=== PATIENT | male | born 1960 | race Caucasian/White ===

== ENCOUNTER → 2020-02-09 08:12 | Outpatient (CLI) | payer BC, SELFPAY ==
[2020-02-09 08:09] VITALS: BMI 27.2
--- NOTE | 2020-02-09 08:14 | RAD_ITS ---
STUDY: X-RAY - LEFT FOOT CLINICAL: Male, 59 years old. INJURED BIG TOE TECHNIQUE: 3 view(s) of the foot. COMPARISON: None. FINDINGS: There is an enthesophyte involving the posterior superior calcaneus at the site of insertion of the Achilles tendon. Normal visualized subtalar, talonavicular, calcaneocuboid, tarsal and tarsometatarsal articulations. Normal metatarsi. There is degenerative arthrosis of the metatarsophalangeal joint of the hallux . Normal tibial and fibular sesamoid bones. Normal interphalangeal joint of the great toe. Normal phalanges of the great toe. Normal second through fifth metatarsophalangeal joints. Normal interphalangeal joints and phalanges of the lesser toes. Soft tissue swelling. RAD/Foot min 3 Views IMPRESSION: Degenerative changes at the first metatarsophalangeal joint. Soft tissue swelling. Electronically Signed: Guille Cummins, at 8:42 EDT , Service support ,
--- NOTE | 2020-03-22 10:13 | ED.RN ---
Pt called advocate inquiring about follow-up care. States toe is still swollen and discolored. Advocate called [facility] and awaiting return call.
== END ==
PROVIDERS: Referring Provider Physician Assistant; Visit Provider Physician Assistant
DX: S99.922A Unspecified injury of left foot, initial encounter (principal)
CPT/HCPCS: 73630

== ENCOUNTER 2020-11-20 19:22 | Inpatient (IN) | payer BC, SELFPAY ==
[2020-02-09 08:09] VITALS: BMI 27.2
[2020-11-20 19:24] VITALS: BP 124/73; PULSE 100; RESP 16; TEMP 35.7; O2SAT 97; BMI 27.6
[2020-11-20 20:21] LABS: Absolute Lymphocyte Count 2.15 X10^3/uL (0.83-4.51); Absolute Neutrophil Count 4.6 X10^3/uL (2.0-7.7); Basophil# 0.05 X10^3/uL; Basophil% 0.7 % (0-1); Eosinophil# 0.09 X10^3/uL; Eosinophils% 1.2 % (0-5); Hematocrit 43.6 % (40-54); Lymphocyte # 2.15 X10^3/ul (4.0); Lymphocyte % 29.6 % (19-41); Mean Corp Hgb Conc 34.4 g/dL (32-36); Mean Corpuscular Hgb 30.7 pg (27.0-32.0); Mean Corpuscular Volume 89.2 fL (80-94); Mean Platelet Vol. 8.4 fl (6.2-12.0); Monocyte# 0.37 X10^3/uL; Monocyte% 5.1 % (0-10); NRBC Flagged by Analyzer 0 % (0-5); Neutrophil % 63.3 % (47-70); Platelet Count 324 K/mm3 (150-450); RBC Distribution Width CV 12.2 % (11.6-14.6); RBC Distribution Width SD 40.1 fl (35.1-43.9); Red Blood Count 4.89 M/mm3 (4.6-6.2); White Blood Count 7.3 K/mm3 (4.4-11.0)
--- NOTE | 2020-11-20 20:21 | ED.VISSUMM ---
- ER Visit Summary Date of Service: 11/20/20 Chief Complaint: Detox from alcohol History of Present Illness: The patient is a 60 M who presents requesting detox from alcohol. Patient states he drinks approximately 8-10 beers per day. Patient states his last drink was approximately 2 hours prior to arrival. Patient states his last detox was approximately 2 years ago. Patient states he was sober for approximately 6 months after that. Patient states he started drinking again and has been drinking for the past year and a half. Patient denies any seizures. Patient denies any tremors. Patient denies any hallucinations. Patient does admit to suicidal thoughts. Patient states he has thought of overdosing on sleeping pills. Physical Examination: Vital signs are stable. Patient is afebrile. Patient is in no acute distress. Oral mucosa is pink and moist. Neck is supple. Trachea is midline. There is no JVD noted. Heart was regular rate and rhythm. Lungs are clear and equal bilaterally. Abdomen is soft. Bowel sounds are normal. There is no tenderness. There is no rebound or guarding noted. Skin is warm dry. Cranial nerves II through XII are intact. There are no focal motor or sensory deficits noted. Extremities are intact. There is no calf tenderness or edema. Patient does have a depressed mood and a flat affect. Patient admits to suicidal ideations Test Results: CBC and basic metabolic profile were obtained and were within normal limits. Urine tox screen was negative. Serum alcohol level was 81. Emergency Department Course and Treatment: Because the patient voiced suicidal ideations, social worker palliative care went in to talk with the patient. Patient told the social worker palliative care that his only suicidal ideations were because of his drinking. Patient does not have any suicidal intent. Patient states he is just tired of drinking and if he cannot get any help with his alcoholism, then he would consider suicidal thoughts. Case was discussed with the hospitalist. Disposition: Admit to hospital Impression: 1. Alcohol withdrawal This note was generated with [employer] dictation software. It may contain incorrect words, spelling, and punctuation that were not noted in review of the chart prior to signing ED Disposition - Plan for ED Patient: Disposition: Acute Care Hospital [facility] Diagnosis: Alcohol withdrawal
--- NOTE | 2020-11-20 20:25 | ED.RN ---
PATIENT HAS PROPERTY ENVELOPE LOCKED UP AT THIS TIME # [id number]
[2020-11-20 20:44] LABS: Anion Gap 7 (5-15); BUN 10 mg/dL (7-18); BUN/Creat Ratio 11.8 RATIO (10-20); Calcium,Total 8.6 mg/dL (8.5-10.1); Chloride 108 mmol/L (98-107); Creatinine, Serum 0.84 mg/dL (0.70-1.30); EST Glomerular Filtration Rate 99 mL/min (>60); Est Glom Filt Rate - Afr Amer 120 mL/min (>60); Estimated Creatinine Clearance 98.97 ml/min; Glucose 81 mg/dL (74-106); Potassium 3.7 mmol/L (3.5-5.1); Sodium Level 140 mmol/L (136-145)
[2020-11-20 21:00] VITALS: RESP 15
[2020-11-20 21:01] LABS: Amphetamine Urine VISTA NEGATIVE (<1000 ng/mL); Barbiturate Urine VISTA NEGATIVE (< 200 ng/mL); Benzodiazepine Urine VISTA NEGATIVE (< 200 ng/mL); Cocaine Urine VISTA NEGATIVE (< 300 ng/mL); Ecstacy Urine VISTA NEGATIVE (< 500 ng/mL); Methadone Urine VISTA NEGATIVE (< 300 ng/mL); PCP Urine VISTA NEGATIVE (< 25 ng/mL); THC Urine VISTA NEGATIVE (< 50 ng/mL); Vista UDS pH Range 5
--- NOTE | 2020-11-20 22:16 | CM.ED ---
SOCIAL WORK ASSESSMENT Informant: Dr. Delgado Reason for Consult: Substance Abuse/Suicidal ideation Chief Compliant: Patient wanting detox from alcohol. Patient voiced suicidal ideation due to depression from drinking. Marital/Social History: Living Situation: Patient reports is living in [place] with a friend Support/Resources: Friend Education/Employment History: 2 years of college, patient employed at [employer] Treatment/History: Patient reports depression due to drinking. Patient reports has attempted suicide in the past about 5 years ago with sleeping pills. Patient currently denies suicidal ideation and intent. Triggers/Stressors: Patient reports has been in contact with multiple treatment facilities and got nowhere. Patient reports was feeling hopeless as he was not able to get help. Abuse Issues: Patient denies any history of emotional, physical or sexual abuse. Substance Abuse History: Alcohol. Patient states has been drinking most of my life. Patient reports about 8 years ago things became real bad and went to rehab. Patient states since then has had periods of sobriety and treatment. Patient reports drinking became worse over the holidays. Patient states today drank about 8-10 beers, but could have been more. Patient reporting I just want help. Risk to Self/Others: Suicidal- Patient denies any current suicidal ideation, plan or intent. Patient states to have attempted in the past. Patient states this all stems from my drinking. I just want help to stop. Patient counseled on lethal means. Recommending discontinuation of sitter protocol. Homicidal- Patient denies any homicidal ideation. Mental Status Exam: Orientation: A&Ox3 Memory: Good Appearance/General Behavior: clean/appropriate, calm Mood/Affect: depressed Communication Pattern: responds to questions, maintains eye contact, forward thinking, patient with good insight into disease Judgment: good Assessment: Met with patient in room. Sitter protocol in place at this time. Introduced role and reason for referral. Patient's alcohol level under 100 and cleared for assessment by this worker. Patient A&Ox3. Patient discussed history of alcohol abuse and reports it has ruined my life. I just want help. Patient states for last several days has been trying to seek help with treatment. Patient reported feelings of hopelessness because efforts got nowhere. Patient denies any current suicidal ideation. Patient reports thoughts and plan to overdose on sleeping pills and states about 5 years ago had an attempt. Patient stating. I wouldn't do it now, I could never pull the trigger. Patient stating depression all stems from drinking. Patient reports want and need for detox. Education provided on [facility] program here at [facility]. Patient believes would benefit from program. Collaboration with Dr. Delgado and recommendation for sitter to be discontinued. Dr. Delgado in agreement with plan. Plan for admission for alcohol withdrawal management. Plan: Admit to [facility] Treatment Navigator, Marylou updated on plan for patient's admission. Marylou reports Dee Dee from [facility] will be in tomorrow to complete assessment. Johanna Benedict, BUTTON FACING MACHINE OPERATOR, WELT POCKET MACHINE OPERATOR
--- NOTE | 2020-11-20 22:23 | NURSING ---
Sitter no longer needed per Olegario MARTEL.
--- NOTE | 2020-11-20 22:34 | HP.PCM_ITS ---
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 Patient drinks about 6-10 beers a day. Last drank 8 cans of beer at 4 PM on the day of admission. He feels that alcohol is ruining his life and he might not be able to quit. He has a history of medical detox with relapse. He had gone 8 years sober prior. Patient had been trying to get into a rehab facility. He had been communicating with a social welfare research worker for [facility] when he expressed frustration at getting into a detox facility. He had expressed suicidal ideation and a plan. He was referred to the emergency department. In the ED patient denied any suicidal ideation plan. He said he felt depressed and frustrated when he could not get in into a program. At the time of being seen, he denied any tremors or dizziness or nausea or vomiting. His blood alcohol level was 81. Urine tox was negative. Admitting blood work was unremarkable. His vitals show temperature of 96.2F, heart rate 100, blood pressure 124/75, respiratory rate was 16, SPO2 was 97% on room air. Past Medical History Past Medical History (Chronic Problems): Chronic Problems (Last Reviewed 02/09/20 @ 08:12 by Reena Trinidad) Hyperlipidemia (Chronic) Allergies No Known Allergies Allergy (Verified 11/20/20 19:27) Home Medications: Ambulatory Orders Medication Instructions Recorded atorvastatin 40 mg tablet 40 mg PO DAILY 02/09/20 Surgical History: no surgical history Psychiatric History: No pertinent psych hx Lives: Alone Smoking Status: Current every day smoker Tobacco Use: Cigarettes Alcohol: Heavy Drugs: None - *Family History Maternal History Items: Cancer - bone mets Paternal History Items: Unknown Review of Systems Constitutional: Denies: Anorexia, Chills, Fever, Malaise, Weakness, Weight Change, Fatigue Eyes: Denies: Blurred vision, Cataracts, Conjunctivae Inflammation, Pain, Redness, Vision Change HEENT: Denies: Difficulty Hearing, Difficulty Swallowing, Head Aches, Hearing Changes, Sinus Congestion, Sinus Drainage Cardiovascular: Denies: Chest Pain, Claudication, Orthopnea, Palpitations, Paroxysmal Noc. Dyspnea Respiratory: Denies: Cough, Hemoptysis, Shortness of breath at rest, Shortness of breath upon exertion, Sputum production Gastrointestinal: Denies: Abdominal Pain, Hematemesis, Hematochezia, Nausea, Vomiting Genitourinary: Denies: Dysuria, Frequency, Incontinence Musculoskeletal: Denies: Joint Pain, Joint stiffness, Joint swelling, Joint Tenderness Skin: Denies: Rash, Wounds Neurological: Denies: Numbness, Tingling, Focal weakness Psychiatric: Denies: Anxiety, Depression, Homicidal Ideations, Suicidal Ideations Hematologic/ Lymphatic: Denies: Easy Bruising, Easy Bleeding VTE Information - Inpt Only VTE Present on Admission: No VTE Pharm Prophylaxis ordered?: Yes Patient Problems: Active and Suspected Problems (Last Reviewed 02/09/20 @ 08:12 by Reena Trinidad) Alcohol withdrawal (Acute) - Physical Exam Vitals/I&O's: Vital Signs Temp Pulse Resp BP Pulse Ox 96.2 F L 100 15 124/73 H 97 11/20/20 19:24 11/20/20 19:24 11/20/20 21:00 11/20/20 19:24 11/20/20 19:24 Oxygen Delivery Method Room Air Weight: 87.5 kg Body Mass Index (BMI) 27.6 General: Alert, Oriented x3, Cooperative, No apparent distress HEENT: Atraumatic, PERRLA, EOMI, Normocephalic Oral: Moist Mucosa Neck: Supple Lungs: Clear to auscultation, Normal air movement Cardiovascular: Regular rate, Regular Rhythm, Normal S1, Normal S2, No murmurs Abdomen: Bowel Sounds Present, Soft, Non Tender, Non-Distended, No Hepato- splenomegaly Extremities: No edema Skin: No rashes Musculoskeletal: No Tenderness to Palpation of Joints or Extremities Lymphatic: No Cervical, Supraclavicular, or Inguinal Adenopathy Neurological: Cranial nerves II-XII grossly intact Psych/Mental Status: Normal Affect, Appropriate Laboratory Results 11/20/20 20:08: WBC 7.3, RBC 4.89, Hgb 15.0, Hct 43.6, MCV 89.2, MCH 30.7, MCHC 34.4, RDW Std Deviation 40.1, RDW Coeff of Ade 12.2, Plt Count 324, MPV 8.4, Immature Gran % (Auto) 0.100, Neut % (Auto) 63.3, Lymph % (Auto) 29.6, Hooker % (Auto) 5.1, Eos % (Auto) 1.2, Baso % (Auto) 0.7, Absolute Neuts (auto) 4.6, Absolute Lymphs (auto) 2.15, Nucleated RBC % 0 11/20/20 20:08: Sodium 140, Potassium 3.7, Chloride 108 H, Carbon Dioxide 25.0, Anion Gap 7, BUN 10, Creatinine 0.84, Estim Creat Clear Calc 98.97, Est GFR (MDRD) Af Amer 120, Est GFR (MDRD) Non-Af 99, BUN/Creatinine Ratio 11.8, Glucose 81, Calcium 8.6 11/20/20 20:08: Ethyl Alcohol 81.0 11/20/20 20:10: Urine Opiates Screen NEGATIVE, Urine Methadone Screen NEGATIVE, Ur Barbiturates Screen NEGATIVE, Ur Phencyclidine Scrn NEGATIVE, Ur Amphetamines Screen NEGATIVE, U Methamphetamin-MDMA NEGATIVE, U Benzodiazepines Scrn NEGATIVE , Urine Cocaine Screen NEGATIVE, U Cannabinoids Screen NEGATIVE, Ur Drug Screen Comment Assessment/Plan All Active Problems (Last Reviewed 02/09/20 @ 08:12 by Reena Trinidad) Alcohol withdrawal (Acute) Contusion of left great toe without damage to nail (Acute) 1. Chronic alcohol use disorder, being admitted for medical stabilization Patient is currently not in acute alcohol withdrawal, anticipate alcohol withdrawal in a couple of hours Admitting alcohol level was 81 Monitor on phenobarbital withdrawal protocol Social work consulted from the ED 2. Hyperlipidemia, continue on statin 3. DVT prophylaxis?low risk, encourage ambulation Inpatient E&M: [id number] Init Hosp L2
[2020-11-20 22:47] VITALS: BP 138/85; PULSE 75; RESP 16; TEMP 36.8
[2020-11-20 23:52] VITALS: BMI 27.1
[2020-11-21] VITALS (7 sets, daily range): BP systolic 112–144; BP diastolic 59–95; PULSE 76–85; RESP 16–20; TEMP 36.6–37.1; O2SAT 95–98; BMI 27.1
[2020-11-21] MEDS: Phenobarbital 32.4 MG Tablet 64.8 MG PO ×6 (00:15→20:40)
[2020-11-21] MEDS: traZODone 100 MG Tablet PO (00:15)
[2020-11-21 00:27] LABS: AST(SGOT) 15 U/L (15-37); Alanine Aminotransfer ALT/SGPT 24 U/L (16-61); Albumin, Serum 3.7 g/dL (3.2-5.0); Alkaline Phosphatase 61 U/L (45-117); Bilirubin, Direct 0.09 mg/dL (0.00-0.30); Globulin 3.8 g/dL (2.2-4.2); Protein, Total 7.5 g/dL (6.4-8.2)
--- NOTE | 2020-11-21 08:12 | PN_ITS ---
Patient Problems: Active and Suspected Problems (Last Reviewed 02/09/20 @ 08:12 by Reena Trinidad) Alcohol withdrawal (Acute) Subjective: Chief complaint: Follow-up after admission for acute alcohol withdrawal. Patient seen and examined. No acute events overnight. He slept okay last night, has no significant withdrawal symptoms. Reported minimal restlessness but he was able to sleep. No other complaints. His vital signs are stable. - Physical Exam Vitals/I&O's: Vital Signs Temp Pulse Resp BP Pulse Ox 98.4 F 79 17 117/65 98 11/21/20 03:40 11/21/20 03:40 11/21/20 03:40 11/21/20 03:40 11/21/20 03:40 Oxygen Delivery Method Room Air Weight: 188 lb 11.451 oz Body Mass Index (BMI) 27.1 Intake and Output for Last 24 Hours 11/19/20 11/20/20 11/21/20 23:59 23:59 23:59 Intake Total 240 / 240 Balance 240 / 240 General: Alert, Oriented x3, Cooperative, No apparent distress HEENT: Atraumatic, PERRLA, EOMI, Normocephalic Oral: Moist Mucosa, No Gingival or Mucosal Lesions/ Ulcerations Neck: Supple, No JVD, Negative Carotid Bruits, Trachea Midline, Thyroid Normal Size and Texture Lungs: Clear to auscultation, Normal air movement, No rhonchi, No wheeze, No rales Cardiovascular: Regular rate, Regular Rhythm, Normal S1, Normal S2, PMI Normal Abdomen: Bowel Sounds Present, Soft, Non Tender, Non-Distended, No Hepato- splenomegaly Extremities: No clubbing, No cyanosis, No edema Skin: No rashes, No breakdown Lymphatic: No Cervical, Supraclavicular, or Inguinal Adenopathy Neurological: Cranial nerves II-XII grossly intact, Motor Exam 5/5 strength throughout Psych/Mental Status: Normal Affect, Appropriate Laboratory Results 11/20/20 20:08: WBC 7.3, RBC 4.89, Hgb 15.0, Hct 43.6, MCV 89.2, MCH 30.7, MCHC 34.4, RDW Std Deviation 40.1, RDW Coeff of Ade 12.2, Plt Count 324, MPV 8.4, Immature Gran % (Auto) 0.100, Neut % (Auto) 63.3, Lymph % (Auto) 29.6, Maries % (Auto) 5.1, Eos % (Auto) 1.2, Baso % (Auto) 0.7, Absolute Neuts (auto) 4.6, A bsolute Lymphs (auto) 2.15, Nucleated RBC % 0 11/20/20 20:08: Sodium 140, Potassium 3.7, Chloride 108 H, Carbon Dioxide 25.0, Anion Gap 7, BUN 10, Creatinine 0.84, Estim Creat Clear Calc 98.97, Est GFR (MDRD) Af Amer 120, Est GFR (MDRD) Non-Af 99, BUN/Creatinine Ratio 11.8, Glucose 81, Calcium 8.6 11/20/20 20:08: Ethyl Alcohol 81.0 11/20/20 20:08: Total Bilirubin 0.30, Direct Bilirubin 0.09, AST 15, ALT 24, Alkaline Phosphatase 61, Total Protein 7.5, Albumin 3.7, Globulin 3.8 11/20/20 20:10: Urine Opiates Screen NEGATIVE, Urine Methadone Screen NEGATIVE, Ur Barbiturates Screen NEGATIVE, Ur Phencyclidine Scrn NEGATIVE, Ur Amphetamines Screen NEGATIVE, U Methamphetamin-MDMA NEGATIVE, U Benzodiazepines Scrn NEGATIVE, Urine Cocaine Screen NEGATIVE, U Cannabinoids Screen NEGATIVE, Ur Drug Screen Comment Current Medications Acetaminophen (Acetaminophen 500 Mg Tablet) 500 mg PO Q4H PRN PRN PRN Reason: Temp > 100.4 F Al Hydroxide/Mg Hydroxide (Mag Hydrox/Al Hydrox/Simeth 30 Ml Udc) 30 ml PO Q6H PRN PRN PRN Reason: dyspesia Atorvastatin Calcium (Atorvastatin Calcium 40 Mg Tablet) 40 mg PO QHS [facility] Bisacodyl (Bisacodyl 10 Mg Suppository) 10 mg RECTAL DAILY PRN PRN Reason: Constipation Dicyclomine HCl (Dicyclomine 10 Mg Capsule) 20 mg PO Q6H PRN PRN PRN Reason: abdominal discomfort Folic Acid (Folic Acid 1 Mg Tablet) 1 mg PO DAILY@0800 [facility] Gabapentin (Gabapentin 300 Mg Capsule) 300 mg PO Q8H PRN PRN PRN Reason: moderate to severe anxiety Hydroxyzine Pamoate (Hydroxyzine Lina 25 Mg Capsule) 50 mg PO Q4H PRN PRN PRN Reason: mild anxiety Ibuprofen (Ibuprofen 600 Mg Tablet) 600 mg PO Q8H PRN PRN PRN Reason: Pain Score 1-10 Loperamide HCl (Loperamide 2 Mg Capsule) 2 mg PO Q4H PRN PRN PRN Reason: LOOSE STOOLS Nicotine (Nicotine 21 Mg Patch) 21 mg TD DAILY GRACE Ondansetron HCl (Ondansetron 8 Mg Tablet) 8 mg PO Q8H PRN PRN PRN Reason: NAUSEA Phenobarbital (Phenobarbital 32.4 Mg Tablet) 97.2 mg PO Q4H GRACE; Taper Stop: 11/25/20 07:59 Last Admin: 11/21/20 03:36 Dose: 97.2 mg Documented by: Senna (Senna Tablet) 2 tablet PO QHS PRN PRN PRN Reason: Constipation Thiamine HCl (Thiamine Hydrochloride 100 Mg Tablet) 100 mg PO DAILYCM GRACE Trazodone HCl (Trazodone 100 Mg Tablet) 100 mg PO QHS PRN PRN PRN Reason: INSOMNIA Last Admin: 11/21/20 00:15 Dose: 100 mg Documented by: Medical Necessity - Tobacco Use Smoking Status: Current every day smoker Tobacco Use: Cigarettes Assessment/Plan All Active Problems (Last Reviewed 02/09/20 @ 08:12 by Reena Trinidad) Alcohol withdrawal (Acute) This is a 60 years old male patient presented to the emergency room requesting admission for acute alcohol withdrawal for medical stabilization. #1 acute alcohol withdrawal: He is on phenobarbital taper, folic acid, thiamine, as needed Bentyl, Neurontin, Vistaril, Motrin, Imodium, Zofran and trazodone. Routine blood work and LFT was unremarkable. Urine drug screen was negative. Blood alcohol level was 81. Patient stated that he went for detox program in the past twice, last one was 2 years ago but he relapsed. His last drink was yesterday afternoon. He denied use of recreational drugs. Plan to continue same treatment, consult [facility] program. #2 hyperlipidemia: Stable, continue statins. #3 tobacco abuse: NicoDerm patch. #4 DVT prophylaxis: Low risk patient, no prophylaxis indicated. This note was generated with [employer] dictation software. It may contain incorrect words, spelling, and punctuation that were not noted in checking the note before signing. Inpatient E&M: 72410 Subs Hosp L2
[2020-11-21] MEDS: Thiamine Hydrochloride 100 MG Tablet PO (08:30)
[2020-11-21] MEDS: Folic Acid 1 MG Tablet PO (08:30)
--- NOTE | 2020-11-21 11:15 | ADDICTION ---
This sheet writer met with patient in his room. This sheet writer completed ASAM, MSE, PIETRO, AUDIT and d/c plan during today's visit. All completed documentation faxed to [facility] and placed in chart on ramírez. He plans to follow-up with [facility] for [facility] but requested time to think about his options. This sheet writer will meet with patient tomorrow to review other residential options and to finalize d/c plans if needed.
--- NOTE | 2020-11-21 11:40 | CASEMGMT ---
Social Work Note Per advance scout questions, pt has completed LW, not provided copy to [facility] and unable to bring in copy. Pt hasn't completed HCPOA. Maggie Kline MEDICAL DOSIMETRIST, FISHERIES DIVER
[2020-11-21] MEDS: Atorvastatin Calcium 40 MG Tablet PO (20:41)
[2020-11-22] MEDS: Phenobarbital 32.4 MG Tablet 64.8 MG PO ×7 (00:09→23:50)
[2020-11-22 02:21] VITALS: BP 108/61; PULSE 68; RESP 15; TEMP 36.4; O2SAT 97
--- NOTE | 2020-11-22 02:43 | NURSING ---
Pt is experiencing a little bit of a nosebleed after getting up to the bathroom. She states this is not unusual for her. Cotton pad given. Bleeding stopped fairly quickly.
--- NOTE | 2020-11-22 07:54 | PN_ITS ---
Patient Problems: Active and Suspected Problems (Last Reviewed 02/09/20 @ 08:12 by Reena Trinidad) Alcohol withdrawal (Acute) Subjective: Chief complaint: Follow-up after admission for acute alcohol withdrawal. Patient seen and examined. No acute events overnight. He denies any significant withdrawal symptoms. He was able to sleep last night, no shakiness or tremors. His vital signs are stable. - Physical Exam Vitals/I&O's: Vital Signs Temp Pulse Resp BP Pulse Ox 97.5 F L 68 15 108/61 97 11/22/20 02:21 11/22/20 02:21 11/22/20 02:21 11/22/20 02:21 11/22/20 02:21 Oxygen Delivery Method Room Air Weight: 188 lb 11.451 oz Body Mass Index (BMI) 27.1 Intake and Output for Last 24 Hours 11/20/20 11/21/20 11/22/20 23:59 23:59 23:59 Intake Total 240 / 240 Balance 240 / 240 General: Alert, Oriented x3, Cooperative, No apparent distress HEENT: Atraumatic, PERRLA, EOMI, Normocephalic Oral: Moist Mucosa, No Gingival or Mucosal Lesions/ Ulcerations Neck: Supple, No JVD, Negative Carotid Bruits, Trachea Midline, Thyroid Normal Size and Texture Lungs: Clear to auscultation, Normal air movement, No rhonchi, No wheeze, No rales Cardiovascular: Regular rate, Regular Rhythm, Normal S1, Normal S2, PMI Normal Abdomen: Bowel Sounds Present, Soft, Non Tender, Non-Distended, No Hepato-splenomegaly Extremities: No clubbing, No cyanosis, No edema Skin: No rashes, No breakdown Lymphatic: No Cervical, Supraclavicular, or Inguinal Adenopathy Neurological: Cranial nerves II-XII grossly intact, Neuro grossly intact Psych/Mental Status: Normal Affect, Appropriate, Alert and oriented to time, place, person, mood and affect Current Medications Acetaminophen (Acetaminophen 500 Mg Tablet) 500 mg PO Q4H PRN PRN PRN Reason: Temp > 100.4 F Al Hydroxide/Mg Hydroxide (Mag Hydrox/Al Hydrox/Simeth 30 Ml Udc) 30 ml PO Q6H PRN PRN PRN Reason: dyspesia Atorvastatin Calcium (Atorvastatin Calcium 40 Mg Tablet) 40 mg PO QHS [facility] Last Admin: 11/21/20 20:41 Dose: 40 mg Documented by: Bisacodyl (Bisacodyl 10 Mg Suppository) 10 mg RECTAL DAILY PRN PRN Reason: Constipation Dicyclomine HCl (Dicyclomine 10 Mg Capsule) 20 mg PO Q6H PRN PRN PRN Reason: abdominal discomfort Folic Acid (Folic Acid 1 Mg Tablet) 1 mg PO DAILY@0800 [facility] Last Admin: 11/21/20 08:30 Dose: 1 mg Documented by: Gabapentin (Gabapentin 300 Mg Capsule) 300 mg PO Q8H PRN PRN PRN Reason: moderate to severe anxiety Hydroxyzine Pamoate (Hydroxyzine Lina 25 Mg Capsule) 50 mg PO Q4H PRN PRN PRN Reason: mild anxiety Ibuprofen (Ibuprofen 600 Mg Tablet) 600 mg PO Q8H PRN PRN PRN Reason: Pain Score 1-10 Loperamide HCl (Loperamide 2 Mg Capsule) 2 mg PO Q4H PRN PRN PRN Reason: LOOSE STOOLS Nicotine (Nicotine 21 Mg Patch) 21 mg TD DAILY [facility] Last Admin: 11/21/20 08:30 Dose: Not Given Documented by: Ondansetron HCl (Ondansetron 8 Mg Tablet) 8 mg PO Q8H PRN PRN PRN Reason: NAUSEA Phenobarbital (Phenobarbital 32.4 Mg Tablet) 97.2 mg PO Q4H [facility]; Taper Stop: 11/25/20 07:59 Last Admin: 11/22/20 04:08 Dose: 97.2 mg Documented by: Senna (Senna Tablet) 2 tablet PO QHS PRN PRN PRN Reason: Constipation Thiamine HCl ([facility] 100 Mg [facility]) [facility] Admin: 11/21/20 08:30 Dose: 100 mg Documented by: Trazodone HCl (Trazodone 100 Mg Tablet) 100 mg PO QHS PRN PRN PRN Reason: INSOMNIA Last Admin: 11/21/20 00:15 Dose: 100 mg Documented by: Medical Necessity - Tobacco Use Smoking Status: Current every day smoker Tobacco Use: Cigarettes Assessment/Plan All Active Problems (Last Reviewed 02/09/20 @ 08:12 by Reena Trinidad) Alcohol withdrawal (Acute) This is a 60 years old male patient presented to the emergency room requesting admission for acute alcohol withdrawal for medical stabilization. #1 acute alcohol withdrawal: He denied any significant withdrawal symptoms. His vital signs are stable, no tachycardia. Remained on phenobarbital taper, folic acid, thiamine, as needed Bentyl, Neurontin, Vistaril, Motrin, Imodium, Zofran and trazodone. Routine blood work and LFT was unremarkable. Urine drug screen was negative. Blood alcohol level was 81. Patient stated that he went for detox program in the past twice, last one was 2 years ago but he relapsed. His last drink was yesterday afternoon. He denied use of recreational drugs. Plan to continue same treatment, possible DC home tomorrow. #2 hyperlipidemia: Stable, continue statins. #3 tobacco abuse: NicoDerm patch. #4 DVT prophylaxis: Low risk patient, no prophylaxis indicated. This note was generated with [employer] dictation software. It may contain incorrect words, spelling, and punctuation that were not noted in checking the note before signing. Inpatient E&M: 42072 Subs Hosp L2
[2020-11-22 09:05] VITALS: BP 127/85; PULSE 80; RESP 16; TEMP 36.3; O2SAT 98
[2020-11-22] MEDS: Folic Acid 1 MG Tablet PO (09:09)
[2020-11-22] MEDS: Thiamine Hydrochloride 100 MG Tablet PO (09:09)
--- NOTE | 2020-11-22 10:10 | ADDICTION ---
This resume writer met with patient in his room to finalize d/c plan. Pt was agitated and vocalized a desire to potentially leave AMA as he is not able to access his cell phone. He requested a copy of his treatment agreement and was provided this document by charge nurse for his review. Pt not willing to commit to any specific treatment agency but requested to speak with his rehabilitation caseworker, Mabel Lemus with [facility]. Her contact number is [phone]. This resume writer assisted pt in making this call, rehabilitation caseworker did not answer. This resume writer obtained PIETRO and left message for rehabilitation caseworker requesting a return call on pt behalf. This resume writer will attempt to meet with pt tomorrow to finalize d/c plan after speaking with his rehabilitation caseworker.
--- NOTE | 2020-11-22 14:56 | CASEMGMT ---
Social Work Note DELONTE received call from Sheron at [facility]. Sheron states pt is able to admit directly to [facility] tomorrow. Sheron states she will arrange transportation. DELONTE updated RN. Maggie Kline [employer], [employer]
[2020-11-22 16:05] VITALS: BP 158/79; PULSE 68; RESP 18; TEMP 36.8; O2SAT 100
[2020-11-22 19:54] VITALS: BP 109/82; PULSE 81; RESP 16; TEMP 36.4; O2SAT 99
[2020-11-22 19:59] VITALS: BP 109/82; PULSE 81; RESP 16; TEMP 36.4; O2SAT 99
[2020-11-22] MEDS: Atorvastatin Calcium 40 MG Tablet PO (20:08)
[2020-11-22 20:14] VITALS: PULSE 70
[2020-11-23 02:12] VITALS: BP 118/76; PULSE 70; RESP 16; TEMP 36.4; O2SAT 98
[2020-11-23] MEDS: Phenobarbital 32.4 MG Tablet 64.8 MG PO ×2 (04:12→09:19)
--- NOTE | 2020-11-23 08:16 | PCM.DC ---
- Discharge Diagnoses Current Active Problems: Current Active and Chronic Problems (Last Reviewed 02/09/20 @ 08:12 by Reena Trinidad) Alcohol withdrawal (Acute) Hyperlipidemia (Chronic) You will use the following diet at home:: Regular Discharge Activity: Return to Normal Activity Weight Bearing Status: Full weight bearing Call your doctor if you observe: Fever of 101 or Higher, Shortness of breath, Dizziness, Fainting spells, Chest pain, Increased palpitations (irregular heartbeat), Uncontrolled pain Instructions: Recovering from Addiction: Continuing with Counseling, Recovering from Addiction: Coping with Relapse Allergies/Adverse Reactions: Allergies No Known Allergies Allergy (Verified 11/20/20 19:27) Medications to take at Discharge atorvastatin 40 mg tablet 40 mg PO DAILY 02/09/20 Folic Acid 1 mg PO DAILY@0800 #30 tab 11/23/20 Thiamine Hydrochloride [Vitamin B1] 100 mg PO DAILYCM #30 tab 11/23/20 The following prescriptions were given: Folic Acid 1 mg PO DAILY@0800 #30 tab Transmission Status: Pending to [address] Thiamine Hydrochloride [Vitamin B1] 100 mg PO DAILYCM #30 tab Transmission Status: Pending to [address] Primary Care Physician: Care Physician,No Primary [Primary Care Provider] - Please follow up with your Primary Care Physician in: 2-3 weeks. Test Results: Test results from this visit will be discussed in further detail at your follow-up appointment, if applicable.
[2020-11-23] MEDS: Folic Acid 1 MG Tablet PO (09:20)
[2020-11-23] MEDS: Thiamine Hydrochloride 100 MG Tablet PO (09:20)
[2020-11-23 09:24] VITALS: BP 102/76; PULSE 82; RESP 16; TEMP 36.6; O2SAT 97
--- NOTE | 2020-11-23 10:30 | NURSING ---
Returned patient's belongings envelope from the hospital safe. Patient confirmed all money was accounted for and signed form. This nurse and Carito Noble RN witnessed returning of belongings envelope. Patient otherwise ready for discharge. Primary RN Lindsey confirmed that patient is ok for discharge. Patient declined need for wheel chair and elected to walk out of the building. Patient escorted to elevator. Patient denies further needs
--- NOTE | 2020-11-23 11:31 | PCM.DC.SUM ---
Discharge Date and Diagnosis - Problem List Patient Problems: Active and Suspected Problems (Last Reviewed 02/09/20 @ 08:12 by Reena Trinidad) Alcohol withdrawal (Acute) Date of Admission: 11/20/20 Date of Discharge: 11/23/20 - Primary Discharge Diagnosis Acute Problems: Active Problems (Last Reviewed 02/09/20 @ 08:12 by Reena Trinidad) Acute alcohol withdrawal admitted for medical stabilization. - Secondary Discharge Diagnosis Chronic Problems: Chronic Problems (Last Reviewed 02/09/20 @ 08:12 by Reena Trinidad) Alcohol abuse (Chronic) Hyperlipidemia (Chronic) Hospital Course and Treatment Operations: None Procedures: None Summary of Care Provided: Patient seen and examined on the day of discharge and appeared to be stable to be discharged home. He denied any complaints. His vital signs were stable. The patient is a 60 year old M presented to the emergency department requesting admission for acute alcohol withdrawal for medical stabilization. He was admitted to [facility] floor and started on alcohol withdrawal protocol with tapering phenobarbital, folic acid and thiamine supplement, as needed Bentyl, Neurontin, Vistaril, Motrin, Imodium, Zofran and trazodone. Routine blood work and LFT was unremarkable. Urine drug screen was negative. Upon admission, blood alcohol level was 81. During this hospital stay, patient had no significant withdrawal symptoms apart from being mildly anxious and restless. With treatment, patient did very well and he was evaluated by [facility]. The plan was to have patient go to residential treatment for alcohol detox. Patient discharged home in a stable medical condition, plan to go to residential treatment for detox, discharged on thiamine and folic acid, recommended follow-up with PCP in 2 to 3 weeks. Patient Problems: Active and Suspected Problems (Last Reviewed 02/09/20 @ 08:12 by Reena Trinidad) Alcohol withdrawal (Acute) - Physical Exam Vitals/I&O's: Vital Signs Temp Pulse Resp BP Pulse Ox 97.9 F 82 16 102/76 97 11/23/20 09:24 11/23/20 09:24 11/23/20 09:24 11/23/20 09:24 11/23/20 09:24 Oxygen Delivery Method Room Air Weight: 188 lb 11.451 oz Body Mass Index (BMI) 27.1 Intake and Output for Last 24 Hours 11/21/20 11/22/20 11/23/20 23:59 23:59 23:59 Intake Total 240 / 240 780 / 780 Balance 240 / 240 780 / 780 General: Alert, Oriented x3, Cooperative, No apparent distress HEENT: Atraumatic, PERRLA, EOMI, Normocephalic Oral: Moist Mucosa, No Gingival or Mucosal Lesions/ Ulcerations Neck: Supple, No JVD, Negative Carotid Bruits, Trachea Midline, Thyroid Normal Size and Texture Lungs: Clear to auscultation, Normal air movement, No rhonchi, No wheeze, No rales Cardiovascular: Regular rate, Regular Rhythm, Normal S1, Normal S2, PMI Normal Abdomen: Bowel Sounds Present, Soft, Non Tender, Non-Distended, No Hepato-splenomegaly Extremities: No clubbing, No cyanosis, No edema Skin: No rashes, No breakdown Lymphatic: No Cervical, Supraclavicular, or Inguinal Adenopathy Neurological: Cranial nerves II-XII grossly intact, Neuro grossly intact Psych/Mental Status: Normal Affect, Appropriate Discharge Activity: Return to Normal Activity Weight Bearing Status: Full weight bearing Call your doctor if you observe: Fever of 101 or Higher, Shortness of breath, Dizziness, Fainting spells, Chest pain, Increased palpitations (irregular heartbeat), Uncontrolled pain Home Medications: Medications to take at Discharge atorvastatin 40 mg tablet 40 mg PO DAILY 02/09/20 Folic Acid 1 mg PO DAILY@0800 #30 tab 11/23/20 Thiamine Hydrochloride [Vitamin B1] 100 mg PO DAILYCM #30 tab 11/23/20 Following Prescriptions Were Given to Patient: Folic Acid 1 mg PO DAILY@0800 #30 tab Transmission Status: Received by [address] Thiamine Hydrochloride [Vitamin B1] 100 mg PO DAILYCM #30 tab Transmission Status: Received by [address] Primary Care Physician: Care Physician,No Primary [Primary Care Provider] - Please follow up with your Primary Care Physician in: 2-3 weeks. Patient Instructions: Recovering from Addiction: Continuing with Counseling, Recovering from Addiction: Coping with Relapse Disposition: Home Minutes spent on discharge:: 26 Patient Condition:: Stable Medical Necessity - Tobacco Use Smoking Status: Current every day smoker Tobacco Use: Cigarettes Meaningful Use Info Meaningful Use Diagnoses (Choose all that apply): None applicable Inpatient E&M: 44832 [facility]
== END 2020-11-23 10:28 | disposition home or self-care (01) | DRG 897 ==
LOC: ED 22:18 → MS3 22:49
PROVIDERS: Admitting Provider Internal Medicine; Emergency Provider Emergency Medicine; Visit Provider Hospitalist
DX: F10.230 Alcohol dependence with withdrawal, uncomplicated (principal); Y90.4 Blood alcohol level of 80-99 mg/100 ml; F17.210 Nicotine dependence, cigarettes, uncomplicated; E78.3 Hyperchylomicronemia; Z79.899 Other long term (current) drug therapy
CPT/HCPCS: 80048; 80076; 80307; 82077; 85025; 99284; 99406